=== PATIENT | male | born 1985 | race Caucasian/White ===

== ENCOUNTER 2024-12-22 08:32 | Outpatient (AMB) | payer OTHER, SELFPAY ==
--- NOTE | 2024-12-22 08:35 | A.OFFPC_ITS ---
Vital Signs 12/22/24 08:37 Height 6 ft Weight 157 lb 2 oz BMI 21.3 BP 106/58 L Blood Pressure Location Lt brachial Position Sitting Respiration 14 Pulse 88 Pulse Source Pulse Oximeter Temp 97.2 F Temp Source Oral Pulse Oximetry (%) 98 Oxygen Delivery Method Room Air Intake Visit Reasons: establish care [employer] Required: No Accompanied by: Self / Same As Patient Allergies No Known Allergies Allergy (Verified 12/22/24 08:54) Medication List - Last Reconciled 12/22/24 by FATIMAH Rodriguez No Known Home Meds Tobacco use date assessed: 12/22/24 Dental Screening Dental Screen Date: 12/22/24 Did you have a dental visit in the last 12 months?: Yes Did you have a dental problem in the last 6 months where you did not have access to dental care?: No Was dental information given to patient?: Patient has dentist HPI establish care HPI Details Previous PCP: Does not recall Last visit:2018 Last PE:A while and does not remember Specialist: Orthopedics-Dr. Wilkerson, in [place] OBGYN:n/a Past medical history:Wrist injury 06/2022 (wrist scope done due to injury from lifting a box and hand spasm, he had part of bone shaved, GERD, Medications: Family HX:Mother jones esophagus, paternal grandfather had the same thing, grandfather on mother side and cancer that he thinks is related to the throat area. Paternal grandfather had Alzheimer, Father had skin lesion on his nose that was removed, he is not sure if it was carcinoma or not Problem: The patient is a 39-year-old male presenting for a wellness visit and establishment of care. He reports a history of Gastroesophageal Reflux Disease (GERD), which has been managed without medication for the past few years. Previously, he used Zantac as needed, but has not required it recently. The patient underwent wrist surgery in June 2022 due to a wrist injury sustained while lifting a box. The procedure involved a wrist scope and bone shaving to address the issue. Family history is significant for Jones's Esophagus in his mother and grandfather, esophageal cancer in his grandfather, Alzheimer's Disease in his paternal grandmother, and a history of skin cancer in his father. The patient reports occasional episodes of food impaction, particularly with rice, which has occurred over the past year. He describes needing to expel the f ood as it becomes lodged, despite being able to breathe. This symptom has prompted consideration for further evaluation with an endoscopy. He has skin moles that he saw dermatology in [place] they took biopsy and it was benign. Will continue to monitor skin [facility] Medical History (Updated 12/22/24 @ 12:53 by FATIMAH Rodriguez) Right wrist injury GERD (gastroesophageal reflux disease) Surgical History History of arthroscopy of wrist Family History Maternal Grandfather Throat cancer Paternal Grandfather Alzheimer's dementia Barretts esophagus Father Skin lesion Mother Barretts esophagus Social History Housing: House Patient Tobacco Use Status: Never used Tobacco e-Cigarette/Vaping Use: Never Used service: No Current occupational status: employed Cognitive needs: No Hearing needs: No Vision needs: Yes Questionnaire PHQ-9 Over the last 2 weeks, how often have you been bothered by any of the following problems? 1. Little interest or pleasure in doing things: not at all 2. Feeling down, depressed, or hopeless: not at all 3. Trouble falling or staying asleep, or sleeping too much: not at all 4. Feeling tired or having little energy: not at all 5. Poor appetite or overeating: not at all 6. Feeling bad about yourself - or that you are a failure or have let yourself or your family down: not at all 7. Trouble concentrating on things, such as reading the newspaper or watching television: not at all 8. Moving or speaking so slowly that other people could have noticed. Or the opposite - being so fidgety or restless that you have been moving around a lot more than usual: not at all 9. Thoughts that you would be better off or of hurting yourself in some way: not at all Total score: 0 Depression Screening Interpretation: Negative Depression Screening Done: Yes 87796 - PHQ-9 Billing: Yes Source: Developed by Drs. Main King, Jessie Patel Mcgee and colleagues, with an educational luis from [employer]. Thrive Questionnaire Date Thrive assessed: 12/22/24 I am a: Patient What is your living situation today?: I have a steady place to live Within the past 12 months, did the food you bought not last and you didn't have the money to get more?: Never true Within the past 12 months, did you worry whether your food would run out before you got money to buy more?: Never true Do you have trouble paying for medicines?: No Do you have trouble getting transportation to medical appointments?: No Do you have trouble paying your heating and electricity bill?: No Do you have trouble taking care of your child, family member or friend?: No Do you have trouble with day-to-day activities such as bathing, preparing meals, shopping, managing finances, etc.?: No Are you currently unemployed and looking for a job?: No Are you interested in more education?: No Please select the resources that you would like help with: None Currently or been in a relationship where the following occur: No concerns reported THRIVE Score: 0 AUDIT C Alcohol Use Questionnaire (AUDIT-C) 1. How often do you have a drink containing alcohol?: 2-4 times a month 2. How many drinks containing alcohol do you have on a typical day when you are drinking?: 1 or 2 3. How often do you have six or more drinks on one occasion?: Never Total Score: 2 MAHESH-7 AMB Questionnaire MAHESH-7 Date MAHESH - 7 assessed: 12/22/24 Feeling nervous, anxious, or on edge: 0 = Not at all Not being able to stop or control worryin = Not at all Worrying too much about different things: 0 = Not at all Trouble relaxin = Not at all Being so restless that it is hard to sit still: 0 = Not at all Becoming easily annoyed or irritable: 0 = Not at all Feeling afraid as if something awful might happen: 0 = Not at all Total MAHESH-7 score (0-4 normal; 5-9 mild; 10-14 moderate; 15-21 severe): 0 Source: Developed by Drs. Main King, Patel Wilson and colleagues, with an educational luis from [employer]. MAHESH-7 Assessment Billing MAHESH-7 Assessment Tool: MAHESH-7 Assessment 54702 Review of Systems Const Denies headache(s) Eyes Denies loss of vision ENT Reports dysphagia (foods stuck in his throat every once in a while and he has cough this up), Denies vertigo, Denies dizziness, Denies headache(s) and Denies sore throat Card Denies chest pain, Denies leg edema and Denies lightheadedness Resp Denies cough, Denies hemoptysis and Denies wheezing GI Denies abdominal pain, Denies melena, Denies constipation, Reports dysphagia (foods stuck in his throat every once in a while and he has cough this up), Reports heartburn (hx. GERD, not on any medication. symptom is on and off), Denies diarrhea and Denies vomiting Denies dysuria, Denies urinary frequency and Denies urinary urgency Musc Denies arthralgias, Denies joint swelling, Denies numbness and Denies tingling Skin/Breast Reports other (moles) Neuro Denies Abnormal speech present, Denies behavioral changes, Denies vertigo, Denies dizziness, Denies headache(s), Denies loss of vision, Denies memory loss, Denies numbness and Denies tingling Psych Denies anxiety, Denies behavioral changes, Denies depression, Denies memory loss and Denies panic attacks Tirso/Lymph Denies easy bleeding and Denies easy bruising Aller/Immun Denies wheezing Physical exam (Primary Care) Vital Signs: Last Vital Signs Pulse 88 12/22/24 08:37 BP 106/58 L 12/22/24 08:37 Pulse Ox 98 12/22/24 08:37 Oxygen Delivery Method Room Air 12/22/24 08:37 BMI result Body Mass Index 21.3 Tobacco/Smoking Status: Tobacco use Status Tobacco use date assessed 12/22/24 12/22/24 08:45 Patient Tobacco Use Status Never used Tobacco 12/22/24 08:45 e-Cigarette/Vaping Use Never Used 12/22/24 08:45 PHQ-9: PHQ-9 Score PHQ-9: Total score 0 12/22/24 08:45 Depression Screening Interpretation: Negative Thrive Assessment: Date of Thrive Assessment Date Thrive assessed 12/22/24 12/22/24 08:45 Currently or been in a relationship where the following occur: No concerns reported Const General: healthy appearing, no acute distress, alert and awake Nutritional Appearance: well nourished Orientation/consciousness: oriented to person, oriented to place and oriented to time HENMT Ears: TM's normal bilaterally General nose exam: Normal nasal mucous membranes and turbinates present Eyes Conjunctivae: conjunctivae normal Sclerae: sclerae normal Pupils: Equal, round and reactive pupils present Neck Neck: Yes no lymphadenopathy and Yes no JVD Thyroid: Thyroid normal Carotids: no bruits Resp Effort & Inspection: normal respiratory effort and not tachypneic Auscultation: no crackles, no rales, no rhonchi and no wheezes Cardio Rate: regular rate Rhythm: regular rhythm Heart sounds: no murmurs and normal S1 and S2 GI Palpation (GI): Soft to palpation, nontender, no hepatomegaly and no splenomegaly Auscultation: normal bowel sounds Skin General skin exam: dry skin Lesions: lesion noted (skin moles to upper torso) Neuro General: oriented to person, oriented to place and oriented to time Cranial nerves: Yes Equal, round and reactive pupils present Speech: No Abnormal speech present Gait exam (Neuro): Normal gait present Motor exam (neuro): no tremor noted Extrem Right upper extremity: full ROM Left upper extremity: full ROM Right lower extremity: full ROM; no edema Left lower extremity: full ROM; no edema Psych Mental Status: mental status grossly normal Speech and movement: Normal speech and movement present Affect: normal affect Attitude: cooperative Thought process: Normal thought process present Coding Level of Care Code New Pt Level 3 (24154) Diagnoses Gastroesophageal reflux disease, unspecified whether esophagitis present K21.9 Esophagitis presence: esophagitis presence not specified Dysphagia, unspecified type R13.10 Dysphagia type: unspecified Additional Codes MAHESH-7 Assessment Billing - MAHESH-7 Assessment Tool: MAHESH-7 Assessment 85174 ([id number]) PHQ-9 - 95807 - PHQ-9 Billing: Yes ([id number]) Time Spent (min) 36 Assessment & Plan Assessment & Plan (1) GERD (gastroesophageal reflux disease): Code(s): K21.9 - Gastro-esophageal reflux disease without esophagitis Category: Medical Qualifiers: Esophagitis presence: esophagitis presence not specified Qualified Code(s): K21.9 - Gastro-esophageal reflux disease without esophagitis Plan: Patient reports that he used to take Zantac in the past for this but has not needed this medication for few years now. He reports on and off heartburn depending on what he eats so he controls the symptom by dietary modifications. (2) Dysphagia: Code(s): R13.10 - Dysphagia, unspecified Category: Medical Qualifiers: Dysphagia type: unspecified Qualified Code(s): R13.10 - Dysphagia, unspecified Plan: Patient reports food stuck in his throat on and off and if he tries to wash it down with fluid that we will get stuck as well. He has to cough the food up the clear his throat. The patient has a history of GERD and a family history of Jones's esophagus. Will order an barium swallow Orders: Orders Complete Blood Count Auto Diff Today Z00.00 - Encounter for general adult medical examination without abnormal findings UA CC w/rflx Micro + Cult Today Z00.00 - Encounter for general adult medical examination without abnormal findings FL barium swallow Today K21.9 - Gastro-esophageal reflux disease without esophagitis, R13.10 - Dysphagia, unspecified Comprehensive [place]. Panel Fast Today Z00.00 - Encounter for general adult medical examination without abnormal findings Lipid Panel Today Z00.00 - Encounter for general adult medical examination without abnormal findings TSH reflex Free T4 Today Z00.00 - Encounter for general adult medical examination without abnormal findings Vitamin D 25-OH Total Today Z00.00 - Encounter for general adult medical examination without abnormal findings
[2024-12-22 08:37] VITALS: BP 106/58; PULSE 88; RESP 14; TEMP 36.2; O2SAT 98; BMI 21.3
== END 2024-12-22 09:15 | disposition home or self-care (01) ==
LOC: HO.HMCH 08:33
DX: K21.9 Gastro-esophageal reflux disease without esophagitis (principal); R13.10 Dysphagia, unspecified

== ENCOUNTER → 2024-12-22 08:32 | Outpatient (BNVA) | payer OTHER, SELFPAY | DX: K21.9 Gastro-esophageal reflux disease without esophagitis (principal); R13.10 Dysphagia, unspecified | CPT/HCPCS: 96127 ==

== ENCOUNTER 2025-01-20 14:30 | Emergency (ER) | payer OTHER, SELFPAY ==
--- NOTE | ~2025-01-20 | XR_ITS ---
EXAMINATION: XR FOOT, LEFT CLINICAL INFORMATION: ? FB plantar heel COMPARISON: None available. TECHNIQUE: AP, lateral, and oblique views of the left foot. FINDINGS: No radiopaque foreign body is seen in the soft tissues. There are no degenerative changes. Joint spaces are preserved. There are no erosions or osteophytes. There is no visible fracture. XR/XR foot LT min 3V IMPRESSION: Unremarkable left foot, no visible opaque foreign body. Electronically signed by: Manjit Ochoa MD 01/20/2025 03:09 PM EDT
--- NOTE | 2025-01-20 14:47 | ED.GENADULT ---
HPI - General Adult General Chief complaint: Extremity Injury, Lower Stated complaint: pw l foot Time Seen by Provider: 01/20/25 16:17 Source: patient and RN notes reviewed Mode of arrival: ambulatory Limitations: no limitations History of Present Illness ED Provider: Brian Whitten PA-C HPI narrative: 39-year-old male with medical history of GERD presents to the ED due to stepping on a thorn with his left foot while barefoot 2 days ago. Patient states he tried to clean the area with alcohol and peroxide and was using tweezer and needle to remove a form but was unable to get anything out. Patient states pain has improved over the last 2 days. Was concern for retained foreign body that is why he came to the ED today. Patient able to bear weight on foot, no pain with walking. Patient unsure when his last Tdap was. Related Data Home Medications ?Medication ?Instructions ?Recorded ?Confirmed No Known Home Meds 12/22/24 12/22/24 Allergies Allergy/AdvReac Type Severity Reaction Status Date / Time No Known Allergies Allergy Verified 01/20/25 14:50 Review of Systems Review of Systems: CONST: Negative for fever, body aches and chills. HENT: Negative for neck pain/stiffness, headache, congestion, sore throat, swelling. EYES: Negative for discharge/pain or vision changes. RESP: Negative for cough/hemoptysis and shortness of breath. CV: Negative chest pain, difficulty breathing, palpitations. ABD: Negative pain, nausea, vomiting. : Negative increase frequency, dysuria, blood in urine or stool. MUSC: Negative for muscle aches, edema. POS L foot pain after stepping on thorn SKIN: Negative rash, lesions/sores. NEURO: Negative headache, dizziness, weakness. Yes all other systems are reviewed and are negative [facility] Past Medical History Attestation statement: The following information was validated with the patient. Source: old records reviewed and nursing notes reviewed Medical History Right wrist injury GERD (gastroesophageal reflux disease) Surgical History History of arthroscopy of wrist Family History Family History Maternal Grandfather Throat cancer Paternal Grandfather Alzheimer's dementia Barretts esophagus Father Skin lesion Mother Barretts esophagus Social History Social History Housing: House Patient Tobacco Use Status: Never used Tobacco e-Cigarette/Vaping Use: Never Used Advance Directives: No Advance Directives Information Provided: Yes Do you have a plan to hurt others: No Plan service: No Current occupational status: employed Cognitive needs: No Hearing needs: No Vision needs: Yes Physical Exam ED Vital Signs: Vital Signs - 24 hr 01/20/25 14:48 Temperature 97.7 F Pulse Rate 88 Respiratory Rate 16 Blood Pressure 136/58 L Pulse Oximetry 99 Oxygen Delivery Method Room Air BMI result Body Mass Index 21.6 GENERAL APPEARANCE: ?AxOx4, generally well-appearing, no acute distress. HEENT: ?NC, AT. MMM. EOMI, clear conjunctiva, oropharynx clear. NECK: ?Supple without lymphadenopathy.? No stiffness or restricted ROM. HEART:? Normal rate and regular rhythm, normal S1/S2, no m/r/g LUNGS:? CTAB, moving air well. No crackles or wheezes are heard. EXTREMITIES: ?Without cyanosis, clubbing or edema. Left foot with very small punctate sridevi, without erythema, edema, no streaking, no active drainage, no fluctuance, no warmth, no foreign body felt with palpation, mild tenderness to palpation of the left heel. See photos NEUROLOGICAL: ?Grossly nonfocal. Alert and oriented, moving all 4 extremities. Observed to ambulate with normal gait. Skin: ?Warm and dry without any rash. Course Course Course Narrative: This is a rapid medical exam performed by Aleks Curtis NP: Additional HPI, ROS, PE not included below will be deferred to primary provider. Patient is a 39y/o M presenting to the ED with complaint of left plantar foot pain. States was walking barefoot in his yard a few days ago and stepped on ? thorn, pain since. Unsure last Tdap. Plan: Tdap, xray Medications Administered Discontinued Medications Generic Name Dose Route Start Last Admin Trade Name Freq PRN Reason Stop Dose Admin Diphtheria/Tetanus/Acell Pertussis 0.5 ml 01/20/25 14:49 01/20/25 15:46 Diphth,Pertus(Acell),Tet Adult 0.5 Ml Syringe IM 01/20/25 14:50 Not Given .ONCE ONE Medical Decision Making Medical Decision Making [facility] Narrative: 39-year-old male with medical history of GERD presents to the ED due to stepping on a thorn with his left foot while barefoot 2 days ago. Patient states he tried to clean the area with alcohol and peroxide and was using tweezer and needle to remove a form but was unable to get anything out. Patient states pain has improved over the last 2 days. Was concern for retained foreign body that is why he came to the ED today. Patient able to bear weight on foot, no pain with walking. Patient unsure when his last Tdap was. On physical exam left foot with very small punctate sridevi, without edema, erythema, warmth, no foreign body palpated, mild tenderness to palpation of the heel. XR negative for foreign body or other acute processes. Patient states pain has improved over the last 2 days, was concern there is retained foreign body, XR negative for foreign body, I do not palpate foreign body on exam. Patient not diabetic, was walking barefoot without shoes. No concern for diabetic ulcer formation or Pseudomonas infection. At this time I do not believe patient needs antibiotic therapy as pain is improving. I encouraged patient to follow up with his primary care provider. Patient is in agreement with the plan. Differential Diagnosis Differential Diagnoses: The differential diagnosis associated with the presentation includes Cellulitis Abscess Foreign body Admission/Observation Consideration of admission/observation: Escalation of care including admission/observation considered Independent Interpretation I performed an independent interpretation of an: Plain X-Ray Interpretation: I personally interpreted the x-ray of the left foot which was negative for foreign body, fracture, dislocation, soft tissue swelling I agree with the radiologist's interpretation Radiology Impression Discussion of test interpretation with radiology: I have reviewed the radiologist's reading. Radiologist Impression: XR L foot FINDINGS: No radiopaque foreign body is seen in the soft tissues. There are no degenerative changes. Joint spaces are preserved. There are no erosions or osteophytes. There is no visible fracture. XR/XR foot LT min 3V IMPRESSION: Unremarkable left foot, no visible opaque foreign body. Electronically signed by: Manjit Ochoa MD 01/20/2025 03:09 PM EDT Dictated By: Manjit Ochoa MD Signed By: <Electronically signed by Manjit Ochoa MD in [place]> 01/20/25 [id number] External Record Review External record reviewed: Inpatient record, Office record and Outpatient record Prescription Management I considered prescription management with: Antibiotic I considered antibiotics, however foot without erythema, edema, no streaking, patient without history of diabetes, patient was not wearing shoes so no Pseudomonas exposure, patient pain has improved over the last few days. Discharge Plan Discharge Clinical Impression: Foot pain, left Patient Disposition: Home, Self-Care Additional Instructions: You were evaluated in the ED today due to pain in your left foot and concern of retained foreign body. Your physical exam was reassuring, as there was no foreign body palpated, there was no redness, swelling, streaking, warmth to the heel, you were able to bear weight. Your x-ray of the left foot was negative for any retained foreign body, fracture, dislocation, or soft tissue swelling. You were given Tdap in the department today. To manage pain at home you can take 500 mg of Tylenol every 6 hours, do warm soaks of the foot. Please follow up with your primary care provider to ensure improvement. Return to the emergency department if you experience worsening pain of your left foot, redness, swelling, streaking, bleeding or discharge or any other new/worsening/concerning symptoms. Prescriptions: No Action No Known Home Meds Print Language: Bahraini
[2025-01-20 14:48] VITALS: BP 136/58; PULSE 88; RESP 16; TEMP 36.5; O2SAT 99; BMI 21.6
--- NOTE | 2025-01-20 15:46 | PC.NURSE ---
Pt refused Tetanus shot.
[2025-01-20] MEDS: Diphth,Pertus(ACell),Tet Adult 0.5 ML SYRINGE IM (17:32)
[2025-01-20 17:38] VITALS: BP 136/58; PULSE 88; RESP 16; TEMP 36.5; O2SAT 99
== END 2025-01-20 17:38 | disposition home or self-care (01) ==
PROVIDERS: Emergency Provider Emergency Medicine
DX: S91.332A Puncture wound without foreign body, left foot, initial encounter (principal); M79.672 Pain in left foot; W26.9XXA Contact with unspecified sharp object(s), initial encounter; Y93.9 Activity, unspecified; Y92.9 Unspecified place or not applicable; Y99.8 Other external cause status; Z23 Encounter for immunization
CPT/HCPCS: 73630; 90471; 90715; 99282; 99284

== ENCOUNTER → 2025-01-20 14:49 | Outpatient (BNV) | payer OTHER, SELFPAY | PROVIDERS: Visit Provider Radiology Diagnostic Radiology | DX: M79.671 Pain in right foot (principal) | CPT/HCPCS: 73630 ==

== ENCOUNTER 2025-01-27 07:56 | Outpatient (REF) | payer OTHER, SELFPAY ==
--- NOTE | ~2025-01-27 | FL_ITS ---
EXAMINATION: XR BARIUM SWALLOW CLINICAL INFORMATION: Dysphagia to particular food suggesting rice COMPARISON: None available. TECHNIQUE: Routine barium swallow in upright view with thick barium and saltine crackers and thin barium in prone lying position was performed FINDINGS: Following oral administration of thick barium there is normal antegrade flow from the oral cavity, pharynx, esophagus into stomach without obstruction, narrowing or stricture. No laryngeal penetration or aspiration seen. On oral administration of saltine crackers is normal oral mastication and propagation of bolus from the oral cavity through the pharynx, esophagus into stomach. On oral administration of thin barium in prone lying position is good distention of esophagus without intraluminal filling defect or extrinsic compression. No esophageal narrowing seen. The GE junction is widely patent. FLUOROSCOPY TIME: 2 minutes and 12 seconds DOSE AREA PRODUCT: 1043 uGy-m2 (microgray-meter squared) FL/FL barium swallow IMPRESSION: Unremarkable barium swallow with thick barium and barium coated saltine crackers. Electronically signed by: Srinivsa Gallegos MD 01/27/2025 08:57 AM EDT
== END 2025-01-27 07:57 | disposition home or self-care (01) ==
LOC: HO.XRAY 07:56
DX: R13.10 Dysphagia, unspecified (principal); K21.9 Gastro-esophageal reflux disease without esophagitis
CPT/HCPCS: 74220

== ENCOUNTER → 2025-01-27 07:58 | Outpatient (BNV) | payer OTHER, SELFPAY | PROVIDERS: Visit Provider Radiology Diagnostic Radiology | DX: R13.10 Dysphagia, unspecified (principal) | CPT/HCPCS: 74221 ==

== ENCOUNTER 2025-02-16 08:43 | Outpatient (AMB) | payer OTHER, SELFPAY ==
[2025-02-16 08:46] VITALS: BP 110/52; PULSE 67; RESP 18; TEMP 36.2; O2SAT 95; BMI 22.0
--- NOTE | 2025-02-16 08:46 | MHC.PC.OV ---
Vital Signs 02/16/25 08:46 Height 6 ft Weight 162 lb 6 oz BMI 22.0 BP 110/52 L Blood Pressure Location Lt brachial Position Sitting Respiration 18 Pulse 67 Pulse Source Pulse Oximeter Temp 97.1 F Temp Source Temporal Artery Scan Pulse Oximetry (%) 95 Oxygen Delivery Method Room Air Intake Visit Reasons: Annual Exam Allergies No Known Allergies Allergy (Verified 02/16/25 09:20) Medication List - Last Reconciled 02/16/25 by FATIMAH Rodriguez No Known Home Meds Tobacco use date assessed: 02/16/25 Dental Screening Dental Screen Date: 02/16/25 Did you have a dental visit in the last 12 months?: No Did you have a dental problem in the last 6 months where you did not have access to dental care?: No Was dental information given to patient?: Patient has dentist HPI Annual Exam HPI Details Dentist: up to date Eye: up to date Snellen: Right: Left: Corrected vision: yes-both contacts and glasses STI screening: Colonoscopy:n/a Pap Smer: PHQ-9: Flu:no COVID: x 3 Tdap: 12/2024 Diet: regular Exercise: Not recently The patient is a 39-year-old male presenting with left foot pain potentially due to a foreign body. The issue began a few weeks ago when the patient stepped on a thorn while walking barefoot. Initial evaluation in the emergency room included x-rays which showed no foreign body or fracture. The patient reports that the foot was initially asymptomatic post-evaluation but has since developed a scab and discomfort, indicating possible inflammation. Attempts to alleviate the issue with warm soaks have been made, but the problem persists. The patient also reports occasional gastroesophageal reflux disease (GERD) symptoms, particularly after consuming coffee. These symptoms are infrequent and manageable with dietary adjustments. The patient has a history of hyperlipidemia, with recent lab results showing LDL cholesterol at 110 mg/dL, slightly above the desired level of less than 100 mg/dL. Dietary modifications have been recommended to manage this condition. Additionally, the patient has a vitamin D deficiency, with levels at 26.8 ng/mL, below the optimal level of 30 ng/mL. A vitamin D supplement of 1,000 IU daily has been advised to correct this deficiency. Recorded labs from [facility]: glucose 91, bun 11,cr .90, egfr 110, sodium 141, potassium 4.2, chloride 101, calcium 9.2, protein 6.8, alkaline phosphatase 62, ast 23, total 168, tri 98, hdl 40, ldl 110, tsh 1.370 ulu/ml, T4 9.3 ug/dl vitamin 26.8 PFSH Medical History Right wrist injury GERD (gastroesophageal reflux disease) Surgical History History of arthroscopy of wrist Family History Maternal Grandfather Throat cancer Paternal Grandfather Alzheimer's dementia Barretts esophagus Father Skin lesion Mother Barretts esophagus Social History Housing: House Patient Tobacco Use Status: Never used Tobacco e-Cigarette/Vaping Use: Never Used service: No Current occupational status: employed Cognitive needs: No Hearing needs: No Vision needs: Yes Questionnaire Thrive Questionnaire Date Thrive assessed: 12/22/24 I am a: Patient What is your living situation today?: I have a steady place to live Within the past 12 months, did the food you bought not last and you didn't have the money to get more?: Never true Within the past 12 months, did you worry whether your food would run out before you got money to buy more?: Never true Do you have trouble paying for medicines?: No Do you have trouble getting transportation to medical appointments?: No Do you have trouble paying your heating and electricity bill?: No Do you have trouble taking care of your child, family member or friend?: No Do you have trouble with day-to-day activities such as bathing, preparing meals, shopping, managing finances, etc.?: No Are you currently unemployed and looking for a job?: No Are you interested in more education?: No Please select the resources that you would like help with: None Currently or been in a relationship where the following occur: No concerns reported THRIVE Score: 0 MAHESH-7 AMB Questionnaire MAHESH-7 Date MAHESH - 7 assessed: 12/22/24 Source: Developed by Drs. Main King, Jessie Meek, Patel Mariano and colleagues, with an educational luis from [employer]. Review of Systems Const Denies headache(s) Eyes Denies loss of vision ENT Denies vertigo, Denies dizziness, Denies headache(s) and Denies sore throat Card Denies chest pain, Denies leg edema and Denies lightheadedness Resp Denies cough, Denies hemoptysis and Denies wheezing GI Denies abdominal pain, Denies melena, Denies constipation, Reports heartburn (Infrequent-depending on what he eats), Denies diarrhea and Denies vomiting Denies dysuria, Denies urinary frequency and Denies urinary urgency Musc Denies arthralgias, Denies joint swelling, Denies numbness, Denies tingling and Reports other (Left foot bottom discomfort) Neuro Denies Abnormal speech present, Denies behavioral changes, Denies vertigo, Denies dizziness, Denies headache(s), Denies loss of vision, Denies memory loss, Denies numbness and Denies tingling Psych Denies anxiety, Denies behavioral changes, Denies depression, Denies memory loss and Denies panic attacks Tirso/Lymph Denies easy bleeding and Denies easy bruising Aller/Immun Denies wheezing Physical exam (Primary Care) Vital Signs: Last Vital Signs Temp 97.1 F 02/16/25 08:46 Pulse 67 02/16/25 08:46 Resp 18 02/16/25 08:46 BP 110/52 L 02/16/25 08:46 Pulse Ox 95 02/16/25 08:46 Oxygen Delivery Method Room Air 02/16/25 08:46 BMI result Body Mass Index 22.0 Tobacco/Smoking Status: Tobacco use Status Tobacco use date assessed 02/16/25 02/16/25 08:50 Patient Tobacco Use Status Never used Tobacco 02/16/25 08:50 e-Cigarette/Vaping Use Never Used 02/16/25 08:50 Thrive Assessment: Date of Thrive Assessment Date Thrive assessed 12/22/24 02/16/25 08:50 Currently or been in a relationship where the following occur: No concerns reported Const General: healthy appearing, no acute distress, alert and awake Nutritional Appearance: well nourished Orientation/consciousness: oriented to person, oriented to place and oriented to time HENMT Ears: TM's normal bilaterally General nose exam: Normal nasal mucous membranes and turbinates present Eyes Conjunctivae: conjunctivae normal Sclerae: sclerae normal Pupils: Equal, round and reactive pupils present Neck Neck: Yes no lymphadenopathy and Yes no JVD Thyroid: Thyroid normal Carotids: no bruits Resp Effort & Inspection: normal respiratory effort and not tachypneic Auscultation: no crackles, no rales, no rhonchi and no wheezes Cardio Rate: regular rate Rhythm: regular rhythm Heart sounds: no murmurs and normal S1 and S2 GI Palpation (GI): Soft to palpation, nontender, no hepatomegaly and no splenomegaly Auscultation: normal bowel sounds General: Yes no CVA tenderness Back/Spine/Pelvis Back: no CVA tenderness Skin General skin exam: no rashes or lesions noted and dry skin Neuro General: oriented to person, oriented to place and oriented to time Cranial nerves: Yes CN's II-XII intact bilaterally and Yes Equal, round and reactive pupils present Speech: No Abnormal speech present Gait exam (Neuro): Normal gait present Motor exam (neuro): no tremor noted Deep tendon reflexes (DTR's): Right triceps reflex intensity grade: 2+, Left triceps reflex intensity grade: 2+, Rt Biceps (C5, C6): 2+, Left biceps reflex intensity grade: 2+, Right brachioradialis reflex intensity grade: 2+, Left brachioradialis reflex intensity grade: 2+, Right patellar reflex intensity grade: 2+ and Left patellar reflex intensity grade: 2+ Extrem Right upper extremity: full ROM Left upper extremity: full ROM Right lower extremity: full ROM; no edema Left lower extremity: full ROM and foot (Bottom of foot (heel) scabbed area, no erythema or edema); no edema Psych Mental Status: mental status grossly normal Speech and movement: Normal speech and movement present Affect: normal affect Attitude: cooperative Thought process: Normal thought process present Coding Level of Care Code Est Pt Prev Care 40-64y(42868) Diagnoses Annual physical exam Z00.00 Dysphagia, unspecified type R13.10 Dysphagia type: unspecified Gastroesophageal reflux disease, unspecified whether esophagitis present K21.9 Esophagitis presence: esophagitis presence not specified Foot pain, left M79.672 Vitamin D deficiency E55.9 Time Spent (min) 37 Assessment & Plan Assessment & Plan (1) Annual physical exam: Code(s): Z00.00 - Encounter for general adult medical examination without abnormal findings Category: Medical Plan: 39-year-old male presenting for annual physical. He is generally in good health. Up-to-date on eye and dental exams. Tdap 12/2024. Preventative guidelines and recent labs reviewed with the patient. Patient completed blood work and [facility]. (2) Dysphagia: Code(s): R13.10 - Dysphagia, unspecified Category: Medical Qualifiers: Dysphagia type: unspecified Qualified Code(s): R13.10 - Dysphagia, unspecified Plan: At previous visit, the patient complained of food stuck in his throat intermittently. A barium swallow was completed that showed normal swallowing mechanism. (3) GERD (gastroesophageal reflux disease): Code(s): K21.9 - Gastro-esophageal reflux disease without esophagitis Category: Medical Qualifiers: Esophagitis presence: esophagitis presence not specified Qualified Code(s): K21.9 - Gastro-esophageal reflux disease without esophagitis Plan: Patient reports that he used to take Zantac in the past for this but has not needed this medication for few years now. He reports on and off heartburn depending on what he eats so he controls the symptom by dietary modifications. (4) Foot pain, left: Code(s): M79.672 - Pain in left foot Category: Medical Plan: Status post left foot injury while walking barefoot that landed the patient in the emergency room. X-ray of left foot showed no acute injuries. Apparently the patient stepped on an hard object, he now has a small scab to the heel aspect of the bottom of his foot. No erythema no edema, just mild discomfort with hard palpation of the area. We will continue to monitor (5) Vitamin D deficiency: Code(s): E55.9 - Vitamin D deficiency, unspecified Category: Medical Plan: Low vitamin-D level. Cholecalciferol 25 mcg daily ordered Medications: New cholecalciferol (vitamin D3) 25 mcg PO DAILY 90 caps 3RF
== END 2025-02-16 09:44 | disposition home or self-care (01) ==
LOC: HO.HMCH 08:43
DX: Z00.00 Encounter for general adult medical examination without abnormal findings (principal); R13.10 Dysphagia, unspecified; K21.9 Gastro-esophageal reflux disease without esophagitis; M79.672 Pain in left foot; E55.9 Vitamin D deficiency, unspecified